=== PATIENT | male | born 1955 | race Caucasian/White ===

== ENCOUNTER 2022-05-24 09:15 | Emergency (ER) | payer MEDICARE, OTHER ==
[2022-05-24 10:32] LABS: RED BLOOD COUNT 5.02 M/UL (4.20-5.50); WHITE BLOOD COUNT 7.3 K/UL (4.5-11.0)
[2022-05-24 10:57] LABS: BUN/CREATININE RATIO 13 (0-10)
[2022-05-24] MEDS ORDERED: CARAFATE 1 GM TA1 GM PO (13:35)
== END 2022-05-24 18:50 | disposition home or self-care (01) ==
LOC: ER1 09:15
PROVIDERS: Student in an Organized Health Care Education/Training Program
DX: R11.0 Nausea (principal); F32.A Depression, unspecified; F41.9 Anxiety disorder, unspecified; I48.91 Unspecified atrial fibrillation; Z20.822 Contact with and (suspected) exposure to COVID-19; K21.9 Gastro-esophageal reflux disease without esophagitis; E78.5 Hyperlipidemia, unspecified
CPT/HCPCS: 0240U; 80053; 80307; 81001; 82550; 82553; 83690; 83735; 84484; 85025; 93005; 99284; G0480; Q9967

== ENCOUNTER → 2022-06-08 | Outpatient (CLI) | payer MEDICARE, OTHER ==
[~2022-06-08] MED LIST: CARAFATE 1 GM TA1 GM PO
== END ==
LOC: NM 13:00
DX: K57.10 Diverticulosis of small intestine without perforation or abscess without bleeding (principal); R11.0 Nausea
CPT/HCPCS: 78264; A9541